=== PATIENT | female | born 1990 | race Caucasian/White ===

== ENCOUNTER → 2017-12-05 | Day surgery (SDC) | payer SELFPAY ==
[~2017-12-05] MED LIST: BUPIVACAINE 0.25%/EPI 30ML SDV INJ ONE; DEXAMETHASONE SOD PHOS INJ 4 MG/ML VIAL ONE; FENTANYL CITRATE/PF 100MCG/2 ML INJ ONE; KEFLEX500 MG PO; KETOROLAC TROMETHAMINE 30 MG/ML VIAL ONE; LIDOCAINE HCL 2% LOCAL INJ 5 ML SDV VIAL INJ ONE; MIDAZOLAM HCL 2 MG/2 ML VIAL ONE; ONDANSETRON HCL INJ 2 MG/ML VIAL ONE; PROPOFOL IV EMULSION 10 MG/ML 20 ML VIAL ONE; SEVOFLURANE INHAL SOLN 250 ML PEN BTL ONE; TYLENOL WITH C1 EACH PO
--- NOTE | 2017-12-05 15:11 | Operative Report ---
DATE OF PROCEDURE: December 05, 2017 PREOPERATIVE DIAGNOSIS: Perirectal abscess. POSTOPERATIVE DIAGNOSIS: Perineal abscess. OPERATION PERFORMED: Debridement and drainage of perineal abscess. ANESTHESIA: General. COMPLICATIONS: None. ESTIMATED BLOOD LOSS: Minimal. DESCRIPTION OF PROCEDURE: With the patient lying in bed in the lithotomy position, under good general anesthesia, the perineum was prepped with Betadine solution and draped in the usual manner. Examination at this point revealed that there was no obvious internal opening in the anal canal. There was the abscess that was present in the perineum at the 6 o'clock position. This was then opened, and there was an abscess cavity contained, which was slowly and carefully debrided. There was no fistula that went towards the rectum. This was in the perineal area. This was slowly and carefully debrided and cleaned up. Once this was done, the whole area was then infiltrated with 1/4 percent Marcaine with epinephrine. Hemostasis was ascertained. The wound was then packed with iodoform gauze, and a dressing was applied. Sponge, lap and needle count was correct. Patient tolerated the procedure well and returned to the recovery room in stable condition. Job#: [id number]
[2017-12-05 15:23] VITALS: BP 95/51
== END | disposition home or self-care (01) ==
LOC: OR 10:18
PROVIDERS: ATTEND Surgery
DX: L02.215 Cutaneous abscess of perineum (principal); J45.909 Unspecified asthma, uncomplicated; F41.9 Anxiety disorder, unspecified
CPT/HCPCS: 56405; 81025; J1100; J1885; J2001; J2250; J2405